=== PATIENT | female | born 1975 | race African-American/Black ===

== ENCOUNTER 2020-04-09 08:35 | Emergency (ER) | payer MEDICAID ==
[~2020-04-09] VITALS: Ht 157.5 cm; Wt 122.0 kg
[2020-04-09] MEDS ORDERED: IBUPROFEN 600MG TABLET PO ONE (09:15)
[2020-04-09] MEDS ORDERED: ACETAMINOPHEN 325MG TABLET PO ONE (09:15)
[2020-04-09 11:05] VITALS: BP 145/84
== END 2020-04-09 11:19 | disposition home or self-care (01) ==
LOC: ER 08:58
DX: S39.92XA Unspecified injury of lower back, initial encounter (principal); M19.011 Primary osteoarthritis, right shoulder; I25.2 Old myocardial infarction; E03.9 Hypothyroidism, unspecified; Z98.84 Bariatric surgery status; Z88.5 Allergy status to narcotic agent; W01.0XXA Fall on same level from slipping, tripping and stumbling without subsequent striking against object, initial encounter; Y93.89 Activity, other specified; Y92.512 Supermarket, store or market as the place of occurrence of the external cause
CPT/HCPCS: 71101; 72100; 73030; 73521; 81025; 99284